=== PATIENT | male | born 1955 | race Two or more races ===

== ENCOUNTER 2018-03-11 08:05 | Inpatient (IN) | payer MEDICAID, MEDICARE, OTHER ==
[~2018-03-11] VITALS: Ht 172.7 cm; Wt 74.7 kg
[~2018-03-11 08:05] MED LIST: CIPR-173 PO; METR500T PO; PANT1INJ3 PO
[2018-03-11] MEDS ORDERED: SODIUM CHLORIDE 0.9% 1,000 ML IV ONE (08:30)
[2018-03-11] MEDS ORDERED: PROMETHAZINE HCL 25 MG/ML 1ML IV ONE ×3 (08:30→11:00)
[2018-03-11 08:33] LABS: Basophils # (auto) 0.1 uL; Basophils % (auto) 0.8 % (0.0-2.0); Eosinophils # (auto) 0.1 uL; Eosinophils % (auto) 1.5 % (0.0-7.0); Hematocrit 50.4 % (41.0-53.0); Hemoglobin 17.3 g/dL (13.5-17.5); Lymphocytes # (auto) 3.5 uL; Lymphocytes % (auto) 50.8 % (10.0-50.0); Mean Corpuscular Hemoglobin 30.2 pg (28.0-32.0); Mean Corpuscular Hgb Conc. 34.4 g/dL (32.0-36.0); Mean Corpuscular Volume 87.8 fL (80.0-100.0); Monocytes # (auto) 0.5 uL; Monocytes % (auto) 7.7 % (0.0-12.0); Neutrophils # (auto) 2.7 uL; Neutrophils % (auto) 39.2 % (37.0-80.0); Nucleated Red Blood Cells % 0.1 %; Platelet Count (auto) 192 10^3/uL (140-450); Red Blood Cells 5.74 10^6/uL (4.5-5.90); White Blood Cell 6.8 10^3/uL (4.4-10.8)
[2018-03-11 08:55] LABS: Alanine Aminotransferase 30 U/L (16-61); Alkaline Phosphatase 98 U/L (45-117); Anion Gap 13 (5-15); Aspartate Aminotransferase 19 U/L (15-37); BUN/Creatinine Ratio 20.7; Bilirubin, Total 0.8 mg/dL (0.2-1.0); Blood Urea Nitrogen 23 mg/dL (7-18); Calcium 8.8 mg/dL (8.5-10.1); Carbon Dioxide 21 mmol/L (21-32); Chloride 105 mmol/L (98-107); GFR African American 86 mL/min; GFR Non-African American 71 mL/min; Glucose 275 mg/dL (74-106); Lipase 252 U/L (73-393); Magnesium 2.6 mg/dL (1.6-2.6); Sodium 139 mmol/L (136-145); Total Protein 8.1 g/dL (6.4-8.2)
[2018-03-11 09:01] LABS: Potassium 2.9 mmol/L (3.5-5.1)
[2018-03-11] MEDS: POTASSIUM CHL 20MEQ/100ML 100 ML IV SCH ×2 (09:36→11:28)
[2018-03-11 11:05] LABS: Urine Bacteria NONE SEEN /hpf (None Seen); Urine Blood Negative /uL (Negative); Urine Specific Gravity 1.018 (1.001-1.035); Urine WBC <1 /hpf (0 - 3)
[2018-03-11] MEDS ORDERED: GLIP-116 PO (11:06)
[2018-03-11] MEDS ORDERED: [UNRECOGNIZED DRUG - CODE] PO (11:06)
[2018-03-11] MEDS ORDERED: ELVI1TAB4 PO (11:06)
[2018-03-11] MEDS ORDERED: ZINC50TA2 PO (11:06)
[2018-03-11] MEDS ORDERED: CANA300T PO (11:06)
[2018-03-11] MEDS ORDERED: ARGI500C5 PO (11:06)
[2018-03-11] MEDS ORDERED: DEXTROSE (50%) 50ML SYRG IV PRN (11:15)
[2018-03-11] MEDS ORDERED: SODIUM CHLORIDE 0.9% 2,000 ML IV ONE (11:30)
[2018-03-11] MEDS ORDERED: MORPHINE SULF INJ 2 MG/ML SYRINGE 1ML IV PRN (11:30)
[2018-03-11] MEDS ORDERED: HYDROcodone-ACET 5/325MG TAB PO PRN (11:30)
[2018-03-11] MEDS ORDERED: NITROGLYCERIN 0.4 MG SL TAB SL PRN (11:30)
[2018-03-11] MEDS ORDERED: PROMETHAZINE HCL 25 MG/ML 1ML IV PRN (11:30)
[2018-03-11] MEDS ORDERED: ACETAMINOPHEN 325 MG TAB PO PRN (11:30)
[2018-03-11] MEDS: ACCU-CHEK COMFORT CURVE STRIP VI SCH ×3 (11:56→21:52)
[2018-03-11] MEDS: InsuLIN REG 1unit/0.01ml Soln (100units/ml) SC SCH ×3 (11:56→21:56)
[2018-03-11] MEDS: FAMOTIDINE 20 MG TAB PO SCH ×2 (12:07→21:52)
[2018-03-11] MEDS: SODIUM CHLORIDE 0.9% 1,000 ML IV SCH ×2 (13:39→19:46)
[2018-03-11 15:31] LABS: BUN/Creatinine Ratio 24.2; Calcium 7.4 mg/dL (8.5-10.1); Potassium 3.3 mmol/L (3.5-5.1)
[2018-03-11] MEDS: ONDANSETRON HCL 4 MG/2 ML VIAL IV PRN (15:43)
[2018-03-11] MEDS: MORPHINE SULF INJ 2 MG/ML SYRINGE 1ML IV PRN (15:43)
[2018-03-11] MEDS: cloNIDine HCL 0.1 MG TAB PO PRN (15:44)
[2018-03-11 17:00] VITALS: BP 144/62
[2018-03-11 17:02] VITALS: BP 173/76
[2018-03-11 22:00] VITALS: BP 142/72
[2018-03-12 05:00] VITALS: BP 157/71
[2018-03-12 06:36] LABS: Basophils # (auto) 0 uL; Basophils % (auto) 0.5 % (0.0-2.0); Eosinophils # (auto) 0.1 uL; Eosinophils % (auto) 1.5 % (0.0-7.0); Hematocrit 42.1 % (41.0-53.0); Hemoglobin 14.5 g/dL (13.5-17.5); Lymphocytes # (auto) 1.6 uL; Lymphocytes % (auto) 36.6 % (10.0-50.0); Mean Corpuscular Hemoglobin 30.9 pg (28.0-32.0); Mean Corpuscular Hgb Conc. 34.4 g/dL (32.0-36.0); Mean Corpuscular Volume 89.9 fL (80.0-100.0); Monocytes # (auto) 0.3 uL; Monocytes % (auto) 7.2 % (0.0-12.0); Neutrophils # (auto) 2.4 uL; Neutrophils % (auto) 54.2 % (37.0-80.0); Nucleated Red Blood Cells % 0.1 %; Platelet Count (auto) 144 10^3/uL (140-450); Red Blood Cells 4.68 10^6/uL (4.5-5.90); Red Cell Distribution Width 13.2 % (11.8-14.3); White Blood Cell 4.4 10^3/uL (4.4-10.8)
[2018-03-12] MEDS: SODIUM CHLORIDE 0.9% 1,000 ML IV SCH ×3 (06:49→21:13)
[2018-03-12] MEDS: glipiZIDE 5 MG TAB PO SCH (06:50)
[2018-03-12] MEDS: ACCU-CHEK COMFORT CURVE STRIP VI SCH ×4 (06:50→21:13)
[2018-03-12] MEDS: InsuLIN REG 1unit/0.01ml Soln (100units/ml) SC SCH ×4 (06:50→21:13)
[2018-03-12 06:51] LABS: BUN/Creatinine Ratio 21.7; Bilirubin, Total 0.6 mg/dL (0.2-1.0); Calcium 7.5 mg/dL (8.5-10.1)
[2018-03-12] MEDS ORDERED: POTASSIUM CHL 20 Meq TABLET PO ONE (07:45)
[2018-03-12 08:18] VITALS: BP 147/82
[2018-03-12] MEDS: ARGININE PO SCH (10:00)
[2018-03-12] MEDS ORDERED: GENVOYA PO SCH (10:00)
[2018-03-12] MEDS ORDERED: PATIENTS OWN MEDICATION PO SCH (10:00)
[2018-03-12] MEDS: FAMOTIDINE 20 MG TAB PO SCH ×2 (10:54→21:09)
[2018-03-12] MEDS: MULTIPLE VITAMIN TAB PO SCH (10:55)
[2018-03-12] MEDS: ZINC SULFATE 220mg CAP or TAB PO SCH (10:56)
[2018-03-12] MEDS: METOPROLOL SUCCINATE XL 50 MG TAB PO SCH (10:58)
[2018-03-12] MEDS: HCTZ 25 MG TAB PO SCH (10:58)
[2018-03-12] MEDS: ONDANSETRON HCL 4 MG/2 ML VIAL IV PRN ×2 (11:34→20:53)
[2018-03-12] MEDS: MORPHINE SULF INJ 2 MG/ML SYRINGE 1ML IV PRN (11:34)
[2018-03-12] MEDS: cloNIDine HCL 0.1 MG TAB PO PRN ×2 (12:26→21:09)
[2018-03-12 12:39] VITALS: BP 189/75
[2018-03-12 16:58] VITALS: BP 155/68
[2018-03-12] MEDS: TEMAZEPAM 15 MG CAP PO PRN (21:09)
[2018-03-12] MEDS: GENVOYA PO SCH (21:11)
[2018-03-12 21:30] VITALS: BP 167/77
[2018-03-13] VITALS (7 sets, daily range): BP systolic 138–184; BP diastolic 74–100
[2018-03-13] MEDS: SODIUM CHLORIDE 0.9% 1,000 ML IV SCH ×3 (05:58→23:50)
[2018-03-13] MEDS: InsuLIN REG 1unit/0.01ml Soln (100units/ml) SC SCH ×4 (06:29→21:35)
[2018-03-13] MEDS: ACCU-CHEK COMFORT CURVE STRIP VI SCH ×4 (06:29→21:34)
[2018-03-13] MEDS: glipiZIDE 5 MG TAB PO SCH (06:34)
[2018-03-13] MEDS: METOPROLOL SUCCINATE XL 50 MG TAB PO SCH (08:48)
[2018-03-13] MEDS: HCTZ 25 MG TAB PO SCH (09:16)
[2018-03-13] MEDS: FAMOTIDINE 20 MG TAB PO SCH ×2 (09:56→21:34)
[2018-03-13] MEDS: MULTIPLE VITAMIN TAB PO SCH (09:56)
[2018-03-13] MEDS: ZINC SULFATE 220mg CAP or TAB PO SCH (09:56)
[2018-03-13] MEDS: LISINOPRIL 10 MG TAB PO SCH (09:57)
[2018-03-13] MEDS: ARGININE PO SCH (09:57)
[2018-03-13 10:12] LABS: BUN/Creatinine Ratio 11.4; Calcium 7.7 mg/dL (8.5-10.1); Potassium 3.1 mmol/L (3.5-5.1)
[2018-03-13] MEDS ORDERED: POTASSIUM CHL 20 Meq TABLET PO ONE (15:00)
[2018-03-13] MEDS: GENVOYA PO SCH (21:34)
[2018-03-13] MEDS: TEMAZEPAM 15 MG CAP PO PRN (23:05)
[2018-03-14 04:52] VITALS: BP 150/78
[2018-03-14 05:00] VITALS: BP 144/82
[2018-03-14] MEDS: InsuLIN REG 1unit/0.01ml Soln (100units/ml) SC SCH ×2 (06:03→11:28)
[2018-03-14] MEDS: ACCU-CHEK COMFORT CURVE STRIP VI SCH ×2 (06:03→11:17)
[2018-03-14] MEDS: glipiZIDE 5 MG TAB PO SCH (06:40)
[2018-03-14 06:50] LABS: BUN/Creatinine Ratio 17.9; Potassium 3.1 mmol/L (3.5-5.1)
[2018-03-14] MEDS: SODIUM CHLORIDE 0.9% 1,000 ML IV SCH (07:21)
[2018-03-14 08:00] VITALS: BP 156/82
[2018-03-14] MEDS: MULTIPLE VITAMIN TAB PO SCH (09:17)
[2018-03-14] MEDS: FAMOTIDINE 20 MG TAB PO SCH (09:18)
[2018-03-14] MEDS: ZINC SULFATE 220mg CAP or TAB PO SCH (09:18)
[2018-03-14] MEDS: LISINOPRIL 10 MG TAB PO SCH (09:19)
[2018-03-14] MEDS: ARGININE PO SCH (09:20)
[2018-03-14] MEDS: ONDANSETRON HCL 4 MG/2 ML VIAL IV PRN (10:57)
[2018-03-14] MEDS ORDERED: POTASSIUM CHL 20 Meq TABLET PO ONE (11:00)
[2018-03-14 13:38] VITALS: BP 158/91
== END 2018-03-14 15:50 | disposition home or self-care (01) | DRG 918 ==
LOC: EDBD 08:05 → ER 08:05 → TELE 08:06 → TELE-WESTW 15:34
PROVIDERS: ADMIT Internal Medicine; ATTEND Internal Medicine
DX: T62.91XA Toxic effect of unspecified noxious substance eaten as food, accidental (unintentional), initial encounter (principal); R10.9 Unspecified abdominal pain; K44.9 Diaphragmatic hernia without obstruction or gangrene; E11.22 Type 2 diabetes mellitus with diabetic chronic kidney disease; I12.9 Hypertensive chronic kidney disease with stage 1 through stage 4 chronic kidney disease, or unspecified chronic kidney disease; R00.1 Bradycardia, unspecified; E86.0 Dehydration; E78.5 Hyperlipidemia, unspecified; N28.1 Cyst of kidney, acquired; E11.21 Type 2 diabetes mellitus with diabetic nephropathy; N18.2 Chronic kidney disease, stage 2 (mild); E87.5 Hyperkalemia; Z88.2 Allergy status to sulfonamides
CPT/HCPCS: 36415; 70450; 71045; 74176; 80048; 80053; 81001; 82150; 82962; 83036; 83690; 83735; 84443; 84484; 85025; 85379; 93005; 93306; 94761; 96361; 96374; 96375; 97163; J1815; J2405; J3480